=== PATIENT | female | born 1950 | race Caucasian/White ===

== ENCOUNTER 2017-04-06 08:46 | Emergency (ER) | payer OTHER ==
[2017-04-06 08:53] VITALS: BP 141/69; PULSE 83; TEMP 97.7; BMI 20.1
--- NOTE | 2017-04-06 09:25 | PDOC ---
History of Present Illness - General Chief Complaint: Injury Stated Complaint: INJURY Time Seen by Provider: 04/06/17 09:24 History Source: Patient Exam Limitations: No Limitations - History of Present Illness Initial Comments: 04/06/17 10:22 Agent states was taking trash out this morning, slipped on stairs and fell forward approximately 2 steps landing and striking the left side of her face and head on the staircase. Denies LOC, denies visual changes, denies any dental injury, denies any bleeding from nose. Has multiple superficial abrasions and contusions to left cheek, forehead and chin. Denies neck pain, extremity pain, states only struck the left side of her head. Occurred: reports: just prior to arrival, this morning Severity: reports: moderate Pain Location: reports: face, head Method of Injury: Yes: fall Modifying Factors: improves with: cold therapy Loss of Consciousness: no loss of consciousness Associated Symptoms (Fall): denies symptoms Past History - Travel Traveled outside of the country in the last 30 days: No Close contact w/someone who was outside of country & ill: No - Past Medical History Allergies/Adverse Reactions: Allergies Allergy/AdvReac Type Severity Reaction Status Date / Time No Known Allergies Allergy Verified 04/06/17 08:48 Home Medications: Ambulatory Orders NK [No Known Home Medication] 04/06/17 Cancer: Yes (breast lt) COPD: No - Suicide/Smoking/Psychosocial Hx Smoking History: Never smoked Have you smoked in the past 12 months: No Information on smoking cessation initiated: No Hx Alcohol Use: No Drug/Substance Use Hx: No Substance Use Type: None Review of Systems - Review of Systems Able to Perform ROS?: Yes Is the patient limited Malay proficient: Yes Constitutional: Yes: Symptoms Reported, See HPI, Malaise HEENTM: Yes: Symptoms Reported, See HPI. No: Nose Congestion, Dental Problems Respiratory: No: Symptoms reported Musculoskeletal: Yes: Symptoms Reported, See HPI. No: Neck Pain Neurological: Yes: Symptoms reported, See HPI All Other Systems: Reviewed and Negative *Physical Exam - Vital Signs Last Vital Signs Temp Pulse Resp BP Pulse Ox 97.7 F 83 18 141/69 100 04/06/17 08:49 04/06/17 08:49 04/06/17 08:49 04/06/17 08:49 04/06/17 08:49 - Physical Exam General Appearance: Yes: Nourished, Appropriately Dressed, Apparent Distress, Mild Distress HEENT: positive: JOSELO, Normal ENT Inspection (tenderness along nasal bridge however no crepitus or step-offs, no evidence of fracture), TMs Normal (no hemotympanum, no drainage from nose or ears), Pharynx Normal, Other (addition is intact, no inner gingival laceration or ecchymoses). negative: Rhinorrhea ( no bleeding from either nostril, no septal hematoma) Neck: positive: Supple. negative: Tender, Lymphadenopathy (R), Lymphadenopathy (L) Respiratory/Chest: positive: Lungs Clear Musculoskeletal: positive: Normal Inspection Extremity: positive: Normal Capillary Refill, Normal Inspection, Normal Range of Motion Integumentary: positive: Normal Color, Other (superficial abrasions, not full thickness to left side of face, the left lateral brow, left side of nasal labia , left chin, and a ecchymoses and full thickness abrasion to left zygomatic arch and cheekbone. Has no crepitus or step-offs but tenderness along lower inferior orbital rim. Able to open and shut mouth but is tender at that site.) Neurologic: positive: commissioning agent II-XII NML intact, Fully Oriented, Alert, Normal Mood/ Affect, Normal Response, Motor Strength 5/5 Progress Note - Progress Note Progress Note: Facial x-rays taken as patient reluctant to have CAT scan to rule out any facial bone fracture. Patient is cancer survivor and stated had multiple CAT scans it would avoid radiation if possible. X-ray revealed no fractures or dislocation, no blood in sinuses to indicate any orbital fracture Jacek ointment. Patient refuses Tylenol for pain relief *DC/Admit/Observation/Transfer Diagnosis at time of Disposition: Contusion of face Qualifiers: Encounter type: initial encounter Qualified Code(s): S00.83XA - Contusion of other part of head, initial encounter Superficial injury head Qualifiers: Encounter type: initial encounter Qualified Code(s): S00.90XA - Unspecified superficial injury of unspecified part of head, initial encounter - Discharge Dispostion Disposition: HOME Condition at time of disposition: Stable Admit: No - Referrals Referrals: ON STAFF,NOT [Primary Care Provider] - - Patient Instructions Printed Discharge Instructions: DI for Closed Head Injury Additional Instructions: Rest, ice to area on and off for 15 minutes 4-6 times a day Avoid heavy lifting or exercise until pain and swelling is resolved or until further directed Keep area highly elevated to reduce swelling Continue using bacitracin ointment 2-3 times a day until wounds have healed Followup with private physician in one to 2 days if not improving, May use ibuprofen 2-200 mg tablets every 6 hours as needed for pain - Post Discharge Activity
[2017-04-06] MEDS ORDERED: BACITRACIN 15 GM TUBE TOPICAL OINTMENT ONE (10:38)
== END 2017-04-06 10:48 | disposition home or self-care (01) ==
LOC: JERFT 08:46
DX: S00.83XA Contusion of other part of head, initial encounter (principal); W10.9XXA Fall (on) (from) unspecified stairs and steps, initial encounter; Y93.E9 Activity, other interior property and clothing maintenance; Y92.018 Other place in single-family (private) house as the place of occurrence of the external cause; Y99.8 Other external cause status
CPT/HCPCS: 70150-TC-FY; 99281-25

== ENCOUNTER 2021-02-12 09:50 | Emergency (ER) | payer OTHER ==
[2021-02-12 10:56] VITALS: BP 128/71; PULSE 77; TEMP 98.1; BMI 20.2
[2021-02-13 18:07] LABS: SARS-CoV-2 NAA Detected (Not Detected)
== END 2021-02-12 12:06 | disposition home or self-care (01) ==
LOC: JER 09:50
DX: R05.1 Acute cough (principal); R09.81 Nasal congestion; R51.9 Headache, unspecified
CPT/HCPCS: 87804; 99283-25; C9803; U0003; U0005

== ENCOUNTER 2022-07-08 18:42 | Emergency (ER) | payer OTHER ==
[2022-07-08 18:52] VITALS: BP 131/80; PULSE 76; RESP 18; TEMP 98; BMI 18.1
[2022-07-08] MEDS ORDERED: diphenhydrAMINE HCL 25 MG CAPSULE (FP) PO ONE ×2 (20:16→20:17)
== END 2022-07-08 21:49 | disposition home or self-care (01) ==
LOC: JERFT 18:42
DX: S00.81XA Abrasion of other part of head, initial encounter (principal); M25.562 Pain in left knee; R42 Dizziness and giddiness; R51.9 Headache, unspecified; S80.212A Abrasion, left knee, initial encounter; W01.0XXA Fall on same level from slipping, tripping and stumbling without subsequent striking against object, initial encounter
CPT/HCPCS: 70450-TC; 70486-TC; 99284-25

== ENCOUNTER 2024-01-17 18:30 | Emergency (ER) | payer OTHER ==
[2024-01-17 19:13] VITALS: BP 130/75; PULSE 67; RESP 20; TEMP 98.3; BMI 19.0
[2024-01-17] MEDS ORDERED: MECLIZINE HCL 25 MG TABLET (FP) ONE (20:36)
[2024-01-17] MEDS ORDERED: ACETAMINOPHEN 500 MG TABLET (FP) ONE (20:37)
[2024-01-17] MEDS: ACETAMINOPHEN 500 MG TABLET (FP) PO ONE (20:43)
[2024-01-17] MEDS: MECLIZINE HCL 25 MG TABLET (FP) PO ONE ×2 (20:43→20:54)
[2024-01-17] MEDS: METOCLOPRAMIDE HCL INJECTION 10 MG/2 ML VIAL IVPUSH ONE (20:54)
[2024-01-17] MEDS: ACETAMINOPHEN 1000 MG/100 ML BAG IVPB ONE (20:54)
== END 2024-01-17 21:16 | disposition home or self-care (01) ==
LOC: JER 18:30
DX: R51.9 Headache, unspecified (principal); R22.0 Localized swelling, mass and lump, head
CPT/HCPCS: 99283-25